=== PATIENT | male | born 1990 | race Two or more races ===

== ENCOUNTER 2021-04-02 09:45 | Inpatient (IN) | payer OTHER ==
[2021-04-02 11:14] VITALS: BMI 20.3
[2021-04-02] MEDS ORDERED: BISMUTH SUBSALICYLATE 524 MG/30 ML PO PRN (11:57)
[2021-04-02] MEDS ORDERED: ONDANSETRON *ODT* 4 MG TABLET SL PRN (11:57)
[2021-04-02] MEDS ORDERED: MAG HYDROX/AL HYDROX/SIMETH 30 ML UNIT-DOSE CUP PO PRN (11:57)
[2021-04-02] MEDS ORDERED: ACETAMINOPHEN 325 MG TABLET (FP) PO PRN ×2 (11:57)
[2021-04-02] MEDS ORDERED: IBUPROFEN 400 MG TABLET (FP) PO PRN (11:57)
[2021-04-02] MEDS ORDERED: MAGNESIUM HYDROX 2400MG/30ML ORAL SUSPENSION 30 ML CUP PO PRN (11:57)
[2021-04-02] MEDS ORDERED: MENTHOL/PHENOL 1 EACH UD MM PRN (11:57)
[2021-04-02] MEDS ORDERED: METHADONE HCL 10 MG TABLET (FOR DETOX USE ONLY) PO ONE (11:57)
[2021-04-02] MEDS ORDERED: MAGNESIUM CITRATE 300 ML BOTTLE PO PRN (11:57)
[2021-04-02] MEDS: METHOCARBAMOL 500 MG TABLET PO PRN ×2 (13:35→22:21)
[2021-04-02] MEDS: hydrOXYzine PAMOATE 25 MG CAPSULE (FP) PO SCH ×3 (13:35→22:21)
[2021-04-02] MEDS: NICOTINE 21 MG/24 HOURS TOPICAL PATCH TD SCH (13:36)
[2021-04-02] MEDS: NICOTINE POLACRILEX 2 MG GUM BUC PRN (17:16)
[2021-04-02] MEDS: THIAMINE HCL 100 MG TABLET (FP) PO SCH (22:21)
[2021-04-02] MEDS: MELATONIN 5 MG TABLETS PO SCH (22:21)
[2021-04-03] MEDS: cloNIDine HCL 0.1 MG TABLET PO PRN (05:47)
[2021-04-03] MEDS: hydrOXYzine PAMOATE 25 MG CAPSULE (FP) PO SCH ×5 (05:47→22:07)
[2021-04-03] MEDS ORDERED: METHADONE HCL 10 MG TABLET (FOR DETOX USE ONLY) ONE (08:35)
[2021-04-03] MEDS ORDERED: METHADONE HCL 5 MG TABLET (FOR DETOX USE ONLY) ONE (08:36)
[2021-04-03] MEDS: NICOTINE POLACRILEX 2 MG GUM BUC PRN ×3 (09:23→18:11)
[2021-04-03] MEDS ORDERED: METHADONE (DETOX) 20 MG, METHADONE (DETOX) 5 MG PO ONE (10:00)
[2021-04-03] MEDS: PRENATAL VITAMINS W/ FOLIC ACID TABLET (FP) PO SCH (10:06)
[2021-04-03] MEDS: NICOTINE 21 MG/24 HOURS TOPICAL PATCH TD SCH (10:08)
[2021-04-03] MEDS: diazePAM 5 MG TABLET PO PRN ×3 (13:45→22:09)
[2021-04-03 19:19] LABS: HEMATOCRIT 38.9 % (35.4-49); HEMOGLOBIN 13.1 GM/dL (11.7-16.9); MCH 29.5 pg (25.7-33.7); MCHC 33.7 g/dl (32.0-35.9); MEAN CELL VOLUME 87.6 fl (80-96); MEAN PLT VOLUME 8.1 fl (7.5-11.1); PLATELET COUNT 265 10^3/uL (134-434); RBC 4.44 M/mm3 (4.00-5.60); RDW 13.4 % (11.9-15.9); WHITE BLOOD COUNT 7.8 K/mm3 (4.0-10.0)
[2021-04-03 19:32] LABS: ALBUMIN 3.9 g/dl (3.4-5.0); CALCIUM 8.6 mg/dL (8.5-10.1)
[2021-04-03 19:33] LABS: BLOOD UREA NITROGEN 8.8 mg/dL (7-18)
[2021-04-03 19:36] LABS: CREATININE 0.7 mg/dL (0.55-1.3)
[2021-04-03 19:37] LABS: BILIRUBIN,TOTAL 0.2 mg/dL (0.2-1); TOT PROT 6.9 g/dl (6.4-8.2)
[2021-04-03 20:28] LABS: HIV INTERPRETATION NEGATIVE (NEGATIVE)
[2021-04-03] MEDS: MELATONIN 5 MG TABLETS PO SCH (22:07)
[2021-04-03] MEDS: THIAMINE HCL 100 MG TABLET (FP) PO SCH (22:07)
[2021-04-03] MEDS: SUVOREXANT 10 MG TABLET PO PRN (22:08)
[2021-04-04] MEDS: diazePAM 5 MG TABLET PO PRN (02:52)
[2021-04-04] MEDS: hydrOXYzine PAMOATE 25 MG CAPSULE (FP) PO SCH ×5 (06:45→22:11)
[2021-04-04] MEDS ORDERED: METHADONE HCL 10 MG TABLET (FOR DETOX USE ONLY) PO ONE (10:00)
[2021-04-04] MEDS: NICOTINE 21 MG/24 HOURS TOPICAL PATCH TD SCH (10:14)
[2021-04-04] MEDS: PRENATAL VITAMINS W/ FOLIC ACID TABLET (FP) PO SCH (10:14)
[2021-04-04] MEDS: NICOTINE POLACRILEX 2 MG GUM BUC PRN ×3 (10:15→20:58)
[2021-04-04] MEDS: METHOCARBAMOL 500 MG TABLET PO PRN ×2 (10:16→17:27)
[2021-04-04] MEDS: MELATONIN 5 MG TABLETS PO SCH (22:11)
[2021-04-04] MEDS: THIAMINE HCL 100 MG TABLET (FP) PO SCH (22:11)
[2021-04-04] MEDS: SUVOREXANT 10 MG TABLET PO PRN (22:14)
[2021-04-04] MEDS: cloNIDine HCL 0.1 MG TABLET PO PRN (22:15)
[2021-04-04] MEDS: HYDROCORTISONE 2.5% TOPICAL CREAM 30 GM TUBE TP SCH (23:35)
[2021-04-05] MEDS ORDERED: diazePAM 5 MG TABLET PO ONE (04:59)
[2021-04-05] MEDS: METHOCARBAMOL 500 MG TABLET PO PRN ×3 (05:12→18:15)
[2021-04-05] MEDS: NICOTINE POLACRILEX 2 MG GUM BUC PRN ×5 (05:46→18:29)
[2021-04-05] MEDS: hydrOXYzine PAMOATE 25 MG CAPSULE (FP) PO SCH ×5 (06:04→21:39)
[2021-04-05] MEDS ORDERED: METHADONE HCL 10 MG TABLET (FOR DETOX USE ONLY) ONE (08:53)
[2021-04-05] MEDS ORDERED: METHADONE HCL 5 MG TABLET (FOR DETOX USE ONLY) ONE (08:54)
[2021-04-05] MEDS ORDERED: diazePAM 5 MG TABLET PO PRN (09:07)
[2021-04-05] MEDS ORDERED: METHADONE (DETOX) 10 MG, METHADONE (DETOX) 5 MG PO ONE (10:00)
[2021-04-05] MEDS: NICOTINE 21 MG/24 HOURS TOPICAL PATCH TD SCH (10:09)
[2021-04-05] MEDS: PRENATAL VITAMINS W/ FOLIC ACID TABLET (FP) PO SCH (10:10)
[2021-04-05] MEDS: HYDROCORTISONE 2.5% TOPICAL CREAM 30 GM TUBE TP SCH ×2 (10:13→21:39)
[2021-04-05] MEDS: THIAMINE HCL 100 MG TABLET (FP) PO SCH (21:39)
[2021-04-05] MEDS: cloNIDine HCL 0.1 MG TABLET PO SCH (21:40)
[2021-04-05] MEDS: MELATONIN 5 MG TABLETS PO SCH (21:41)
[2021-04-05] MEDS: SUVOREXANT 10 MG TABLET PO PRN (22:12)
[2021-04-05 23:17] LABS: PH,URINE 7.5 (5.0-8.0); URINE APPEARANCE CLEAR; URINE BILIRUBIN NEGATIVE (NEGATIVE); URINE COLOR YELLOW; URINE GLUCOSE (UA) NEGATIVE (NEGATIVE); URINE KETONE NEGATIVE (NEGATIVE); URINE LEUK ESTERASE NEGATIVE (NEGATIVE); URINE NITRITE NEGATIVE (NEGATIVE); URINE PROTEIN NEGATIVE (NEGATIVE); URINE UROBILINOGEN 0.2 mg/dL (0.2-1.0)
[2021-04-06] MEDS: hydrOXYzine PAMOATE 25 MG CAPSULE (FP) PO SCH ×3 (05:26→13:21)
[2021-04-06] MEDS: METHOCARBAMOL 500 MG TABLET PO PRN ×2 (05:26→11:36)
[2021-04-06] MEDS: NICOTINE POLACRILEX 2 MG GUM BUC PRN ×2 (08:45→11:36)
[2021-04-06] MEDS ORDERED: METHADONE HCL 10 MG TABLET (FOR DETOX USE ONLY) PO ONE (10:00)
[2021-04-06] MEDS: PRENATAL VITAMINS W/ FOLIC ACID TABLET (FP) PO SCH (10:07)
[2021-04-06] MEDS: cloNIDine HCL 0.1 MG TABLET PO SCH (10:08)
[2021-04-06] MEDS: HYDROCORTISONE 2.5% TOPICAL CREAM 30 GM TUBE TP SCH (10:08)
[2021-04-06] MEDS: NICOTINE 21 MG/24 HOURS TOPICAL PATCH TD SCH (10:10)
[2021-04-06 14:30] VITALS: BP 123/72; PULSE 86; TEMP 96.4
[2021-04-06] MEDS ORDERED: SUVOREXANT 10 MG TABLET PO PRN (22:00)
[2021-04-07] MEDS ORDERED: METHADONE HCL 5 MG TABLET (FOR DETOX USE ONLY) PO ONE (06:00)
== END 2021-04-06 14:31 | disposition home or self-care (01) | DRG 773 ==
LOC: YASAS 09:45 → Y3N 12:33
PROVIDERS: ADMIT Allergy & Immunology; ATTEND Allergy & Immunology
PROC: HZ2ZZZZ Detoxification Services for Substance Abuse Treatment (ICD-10-PCS; principal; 2021-04-02)
DX: F11.23 Opioid dependence with withdrawal (principal); F12.20 Cannabis dependence, uncomplicated; F17.210 Nicotine dependence, cigarettes, uncomplicated; F41.9 Anxiety disorder, unspecified; F19.282 Other psychoactive substance dependence with psychoactive substance-induced sleep disorder; F39 Unspecified mood [affective] disorder; G47.00 Insomnia, unspecified; R63.4 Abnormal weight loss; Z68.20 Body mass index [BMI] 20.0-20.9, adult; Z56.0 Unemployment, unspecified
CPT/HCPCS: 36415; 80053; 81003; 85027; 86780; 87086; 87389; 93005; 93010; C9803; J0735; Q0162; U0003; U0005

== ENCOUNTER 2022-05-07 10:54 | Inpatient (IN) | payer OTHER ==
[2022-05-07 11:40] VITALS: BMI 19.8
[2022-05-07] MEDS ORDERED: IBUPROFEN 600 MG TABLET (FP) PO PRN (13:52)
[2022-05-07] MEDS ORDERED: cloNIDine HCL 0.1 MG TABLET PO PRN (13:52)
[2022-05-07] MEDS ORDERED: ACETAMINOPHEN 325 MG TABLET (FP) PO PRN ×2 (13:52)
[2022-05-07] MEDS ORDERED: NICOTINE 10 MG CARTRIDGE (INHALER) IH PRN (13:52)
[2022-05-07] MEDS ORDERED: LOPERAMIDE HCL 2 MG CAPSULE PO PRN (13:52)
[2022-05-07] MEDS ORDERED: IBUPROFEN 400 MG TABLET (FP) PO PRN (13:52)
[2022-05-07] MEDS ORDERED: MAG HYDROX/AL HYDROX/SIMETH 30 ML UNIT-DOSE CUP PO PRN (13:52)
[2022-05-07] MEDS ORDERED: METHOCARBAMOL 500 MG TABLET PO PRN (13:52)
[2022-05-07] MEDS ORDERED: MAGNESIUM HYDROX 2400MG/30ML ORAL SUSPENSION 30 ML CUP PO PRN (13:52)
[2022-05-07] MEDS ORDERED: DICYCLOMINE HCL 10 MG CAPSULE PO PRN (13:52)
[2022-05-07] MEDS ORDERED: ONDANSETRON *ODT* 4 MG TABLET SL PRN (13:52)
[2022-05-07] MEDS ORDERED: BISMUTH SUBSALICYLATE 524 MG/30 ML PO PRN (13:52)
[2022-05-07] MEDS ORDERED: MAGNESIUM CITRATE 300 ML BOTTLE PO PRN (13:52)
[2022-05-07] MEDS ORDERED: BENZOCAINE/MENTHOL (CHLORASEPTIC ) LOZENGE MM PRN (13:52)
[2022-05-07] MEDS ORDERED: methaDONE HCL 10 MG TABLET (FOR DETOX USE ONLY) PO ONE (14:30)
[2022-05-07] MEDS: hydrOXYzine PAMOATE 25 MG CAPSULE (FP) PO SCH ×3 (14:58→22:35)
[2022-05-07] MEDS: PRENATAL VITAMINS W/ FOLIC ACID TABLET (FP) PO SCH (15:01)
[2022-05-07] MEDS: NICOTINE 21 MG/24 HOURS TOPICAL PATCH TD SCH (15:02)
[2022-05-07] MEDS ORDERED: THIAMINE HCL 100 MG TABLET (FP) PO SCH (22:00)
[2022-05-07] MEDS ORDERED: MELATONIN 5 MG TABLETS PO SCH (22:00)
[2022-05-08] MEDS: hydrOXYzine PAMOATE 25 MG CAPSULE (FP) PO SCH ×3 (05:25→13:20)
[2022-05-08 06:00] VITALS: RESP 18
[2022-05-08] MEDS: PRENATAL VITAMINS W/ FOLIC ACID TABLET (FP) PO SCH (10:14)
[2022-05-08] MEDS: NICOTINE 21 MG/24 HOURS TOPICAL PATCH TD SCH (10:14)
[2022-05-08 13:08] VITALS: BP 108/64; PULSE 68; TEMP 98.1
[2022-05-08] MEDS ORDERED: ALBUTEROL SO4 HFA INHALER IH PRN (13:23)
[2022-05-08] MEDS ORDERED: SUVOREXANT 10 MG TABLET PO PRN (22:00)
[2022-05-09] MEDS ORDERED: methaDONE HCL 10 MG TABLET (FOR DETOX USE ONLY) PO ONE (10:00)
[2022-05-11] MEDS ORDERED: methaDONE HCL 10 MG TABLET (FOR DETOX USE ONLY) PO ONE (10:00)
== END 2022-05-08 13:20 | disposition left against medical advice (07) | DRG 770 ==
LOC: SUATTDRO 10:54 → YASAS 10:54 → Y6N 13:26
PROVIDERS: ADMIT Allergy & Immunology; ATTEND Surgery
PROC: HZ2ZZZZ Detoxification Services for Substance Abuse Treatment (ICD-10-PCS; principal; 2022-05-07)
DX: F11.23 Opioid dependence with withdrawal (principal); F14.20 Cocaine dependence, uncomplicated; F17.210 Nicotine dependence, cigarettes, uncomplicated; F20.9 Schizophrenia, unspecified; F39 Unspecified mood [affective] disorder; F19.282 Other psychoactive substance dependence with psychoactive substance-induced sleep disorder; J45.909 Unspecified asthma, uncomplicated; Z56.0 Unemployment, unspecified
CPT/HCPCS: 87811; C9803-CS; U0003; U0005

== ENCOUNTER 2023-08-22 16:20 | Inpatient (IN) | payer OTHER ==
[2023-08-22 16:38] VITALS: BMI 21.9
[2023-08-22] MEDS ORDERED: IBUPROFEN 600 MG TABLET (FP) PO PRN (17:00)
[2023-08-22] MEDS ORDERED: LOPERAMIDE HCL 2 MG CAPSULE PO PRN (17:00)
[2023-08-22] MEDS ORDERED: NALOXONE HCL 0.4 MG/ML VIAL IM PRN (17:00)
[2023-08-22] MEDS ORDERED: ACETAMINOPHEN 325 MG TABLET (FP) PO PRN (17:00)
[2023-08-22] MEDS ORDERED: BENZONATATE 200 MG CAPSULE PO PRN (17:00)
[2023-08-22] MEDS ORDERED: DICYCLOMINE HCL 10 MG CAPSULE PO PRN (17:00)
[2023-08-22] MEDS ORDERED: BISMUTH SUBSALICYLATE 524 MG/30 ML PO PRN (17:00)
[2023-08-22] MEDS ORDERED: METHOCARBAMOL 500 MG TABLET PO PRN (17:00)
[2023-08-22] MEDS ORDERED: POLYETHYLENE GLYCOL (HEALTHYLAX) 3350 17 GM PACKET PO PRN (17:00)
[2023-08-22] MEDS ORDERED: MAGNESIUM HYDROX 2400MG/30ML ORAL SUSPENSION 30 ML CUP PO PRN (17:00)
[2023-08-22] MEDS ORDERED: ONDANSETRON *ODT* 4 MG TABLET SL PRN (17:00)
[2023-08-22] MEDS ORDERED: NALOXONE HCL (KLOXXADO) 8 MG SPRAY NS PRN (17:00)
[2023-08-22] MEDS ORDERED: MAG HYDROX/AL HYDROX/SIMETH 30 ML UNIT-DOSE CUP PO PRN (17:00)
[2023-08-22] MEDS ORDERED: BENZOCAINE/MENTHOL (CHLORASEPTIC ) LOZENGE MM PRN (17:00)
[2023-08-22] MEDS ORDERED: guaiFENesin 600 MG TABLET.ER (FP) PO PRN (17:00)
[2023-08-22] MEDS ORDERED: IBUPROFEN 400 MG TABLET (FP) PO PRN (17:00)
[2023-08-22] MEDS ORDERED: hydrOXYzine PAMOATE 25 MG CAPSULE (FP) PO PRN (17:00)
[2023-08-22] MEDS ORDERED: ALBUTEROL SO4 HFA INHALER IH PRN (17:04)
[2023-08-22] MEDS: NICOTINE POLACRILEX 2 MG GUM BUC PRN (18:08)
[2023-08-22] MEDS ORDERED: MELATONIN 5 MG TABLETS PO SCH (22:00)
[2023-08-22] MEDS ORDERED: THIAMINE HCL 100 MG TABLET (FP) PO SCH (22:00)
[2023-08-23] MEDS: NICOTINE POLACRILEX 2 MG GUM BUC PRN (06:01)
[2023-08-23 06:36] VITALS: BP 121/74; PULSE 88; RESP 20; TEMP 98.2
[2023-08-23 08:30] LABS: HEMATOCRIT 41.3 % (35.4-49); HEMOGLOBIN 13.5 GM/dL (11.7-16.9); MCHC 32.7 g/dl (32.0-35.9); MEAN CELL VOLUME 88.7 fl (80-96); MEAN PLT VOLUME 8.6 fl (7.5-11.1); PLATELET COUNT 321 10^3/uL (134-434); RBC 4.66 M/mm3 (4.00-5.60); RDW 13.7 % (11.9-15.9); WHITE BLOOD COUNT 8.5 K/mm3 (4.0-10.0)
[2023-08-23 09:17] LABS: CHLORIDE 104 mmol/L (98-107); POTASSIUM 3.7 mmol/L (3.5-5.1); SODIUM 139 mmol/L (136-145)
[2023-08-23 09:30] LABS: BLOOD UREA NITROGEN 12.8 mg/dL (7-18)
[2023-08-23 09:31] LABS: ANION GAP 6 mmol/L (4-13); CO2 30 mmol/L (21-32)
[2023-08-23 09:33] LABS: ALBUMIN 4.2 g/dl (3.4-5.0); GLUCOSE,RANDOM 85 mg/dL (74-106); SGOT/AST 12 U/L (15-37)
[2023-08-23 09:34] LABS: CREATININE 0.9 mg/dL (0.55-1.3)
[2023-08-23 09:35] LABS: SGPT/ALT 12 U/L (13-61); TOT PROT 7.1 g/dl (6.4-8.2)
[2023-08-23 09:36] LABS: ALK PHOS 54 U/L (45-117)
[2023-08-23 09:37] LABS: BILIRUBIN,TOTAL 0.6 mg/dL (0.2-1)
[2023-08-23] MEDS ORDERED: PRENATAL VITAMINS W/ FOLIC ACID TABLET (FP) PO SCH (10:00)
[2023-08-23] MEDS ORDERED: NICOTINE 21 MG/24 HOURS TOPICAL PATCH TD SCH (10:00)
== END 2023-08-23 07:04 | disposition left against medical advice (07) | DRG 770 ==
LOC: YASAS 16:20 → Y3N 17:30
PROVIDERS: ADMIT Allergy & Immunology; ATTEND Surgery
PROC: HZ2ZZZZ Detoxification Services for Substance Abuse Treatment (ICD-10-PCS; principal; 2023-08-22)
DX: F11.20 Opioid dependence, uncomplicated (principal); F12.20 Cannabis dependence, uncomplicated; F17.210 Nicotine dependence, cigarettes, uncomplicated; J45.909 Unspecified asthma, uncomplicated; Z28.311 Partially vaccinated for COVID-19
CPT/HCPCS: 36415; 80053; 80307; 85027; 86780; 87635; 93005; 93010